=== PATIENT | female | born 2000 | race Caucasian/White ===

== ENCOUNTER → 2022-10-16 | Outpatient (CLI) | payer BC, SELFPAY ==
[2022-10-18 22:06] LABS: Chlamydia By Nucleic Acid AMP Negative (Negative)
[2022-10-18 22:58] LABS: Gonococcus By Nucleic Acid AMP Negative (Negative)
[2022-10-23 19:10] LABS: HPV Reflexed? NOT INDICATED
== END | disposition home or self-care (01) ==
LOC: LABSPEC 13:06
PROVIDERS: Referring Provider Obstetrics & Gynecology; Visit Provider Obstetrics & Gynecology
DX: Z12.4 Encounter for screening for malignant neoplasm of cervix (principal); Z11.3 Encounter for screening for infections with a predominantly sexual mode of transmission
CPT/HCPCS: 87491; 87591; 88175; G0145

== ENCOUNTER → 2024-04-03 | Outpatient (CLI) | payer BC, SELFPAY ==
[2024-04-07 03:06] LABS: Chlamydia By Nucleic Acid AMP Negative (Negative); Gonococcus By Nucleic Acid AMP Negative (Negative)
== END | disposition home or self-care (01) ==
LOC: LABSPEC 12:40
PROVIDERS: Referring Provider Nurse Practitioner Family; Visit Provider Nurse Practitioner Family
DX: N89.8 Other specified noninflammatory disorders of vagina (principal); Z20.2 Contact with and (suspected) exposure to infections with a predominantly sexual mode of transmission
CPT/HCPCS: 87070; 87205; 87491; 87591

== ENCOUNTER → 2024-05-16 | Outpatient (CLI) | payer BC, SELFPAY | END | disposition home or self-care (01) | LOC: LABSPEC 15:42 | PROVIDERS: Referring Provider Advanced Practice Midwife; Visit Provider Advanced Practice Midwife | DX: N89.8 Other specified noninflammatory disorders of vagina (principal) | CPT/HCPCS: 87070; 87205 ==

== ENCOUNTER → 2024-08-29 | Outpatient (CLI) | payer BC, SELFPAY ==
[2024-08-29 16:26] LABS: T3 Total - Triiodothyronine 1.12 ng/mL (0.6-1.81)
== END | disposition home or self-care (01) ==
LOC: MTRAD 13:19 → MTLAB 13:21
PROVIDERS: Referring Provider Ophthalmology; Visit Provider Ophthalmology
DX: H02.403 Unspecified ptosis of bilateral eyelids (principal)
CPT/HCPCS: 36415; 84238; 84436; 84480

== ENCOUNTER → 2024-12-22 | Outpatient (CLI) | payer BC, SELFPAY | END | disposition home or self-care (01) | LOC: LABSPEC 16:33 | PROVIDERS: Referring Provider Nurse Practitioner Women's Health; Visit Provider Nurse Practitioner Women's Health | DX: N89.8 Other specified noninflammatory disorders of vagina (principal) | CPT/HCPCS: 87070; 87205; 87491; 87591 ==

== ENCOUNTER → 2025-01-16 | Outpatient (CLI) | payer BC, SELFPAY ==
[2025-01-16 15:10] LABS: Hematocrit 40.1 % (37-47); Hemoglobin 13.6 g/dL (12.0-15.0); Mean Corp Hgb Conc 33.9 g/dL (32-36); Mean Corpuscular Hgb 32.1 pg (27.0-32.0); Mean Corpuscular Volume 94.6 fL (81-99); Mean Platelet Vol. 10.4 fl (6.2-12.0); Platelet Count 220 K/mm3 (150-450); RBC Distribution Width CV 11.9 % (11.6-14.6); RBC Distribution Width SD 41.3 fl (35.1-43.9); Red Blood Count 4.24 M/mm3 (4.2-5.4); White Blood Count 6.7 K/mm3 (4.4-11.0)
[2025-01-16 16:30] LABS: ALB/GLOB Ratio 1.7 RATIO (0.9-2.4); AST(SGOT) 16 U/L (<=31); Alanine Aminotransfer ALT/SGPT 13 U/L (<=34); Albumin, Serum 4.3 g/dL (3.5-5.0); Alkaline Phosphatase 45 U/L (35-104); Anion Gap 9 (5-15); BUN 14 mg/dL (4-19); BUN/Creat Ratio 20.5 RATIO (10-20); Calcium,Total 9.3 mg/dL (7.6-11.0); Chloride 103 mmol/L (98-108); Creatinine, Serum 0.69 mg/dL (0.70-1.20); EST Glomerular Filtration Rate 124 (>60); Globulin 2.6 g/dL (2.2-4.2); Glucose 91 mg/dL (70-99); Magnesium 2.2 mg/dL (1.5-2.2); Potassium 4.3 mmol/L (3.3-5.1); Protein, Total 6.8 g/dL (5.9-8.4); Sodium Level 136 mmol/L (133-145); Total Bilirubin 0.47 mg/dL (0.00-1.30)
== END | disposition home or self-care (01) ==
LOC: MTLAB 11:32
PROVIDERS: Referring Provider Psychiatry & Neurology Neurology; Visit Provider Psychiatry & Neurology Neurology
DX: G70.00 Myasthenia gravis without (acute) exacerbation (principal)
CPT/HCPCS: 36415; 80053; 83735; 85027

== ENCOUNTER → 2025-02-18 | Outpatient (CLI) | payer BC, SELFPAY ==
--- NOTE | 2025-02-18 13:15 | MRI_ITS ---
PROCEDURE: CHEST W/WO CONTRAST, 02/18/2025 REASON FOR EXAM: CHECK FOR THYMOMA; PT HAS MYASTHENIA GRAVIS TECHNIQUE: Multisequence multiplanar MR of the chest was performed with and without IV contrast. IV contrast: 15 mL Clariscan COMPARISON: None FINDINGS: Variable overall moderate/severe motion limitation. Some sequences are severely motion degraded and essentially nondiagnostic in some areas most significantly the mid to inferior chest. In/out of phase imaging not performed, notably hawthorne sequences in the evaluation of the thymus. Diffusion was not performed. note also that the entire chest was not imaged. Heart/pericardium: Grossly unremarkable, limited due to motion. Aorta: Grossly unremarkable, limited due to motion. Pulmonary arteries: Not well evaluated. Lymph nodes: Subcarinal node suspected to measure 12 mm short axis but evaluation is very limited due to motion. Nonspecific slightly midline T2 bright anterior mediastinal soft tissue, difficult to discretely measured due to motion 2.2 x 1.1 cm, roughly 2.2 cm inferiorly and 1.6 x 1.2 cm superiorly. No clear enhancement although assessment is limited due to motion. Lungs/pleura: Not well evaluated, no gross abnormality identified. Airways: Not well evaluated Chest wall: Grossly unremarkable as imaged. Upper abdomen: Very poorly evaluated. Musculoskeletal: Grossly unremarkable. MRI/Chest W/WO Contrast IMPRESSION: 1. Considerably limited exam, partially due to motion artifact. Note also that in/out of phase sequences were not performed, notably hawthorne sequences in the evaluation of the thymus and necessary for the dif ferentiation of normal thymic tissue/thymic hyperplasia from anterior mediastinal neoplasia. 2. Nonspecific nodular anterior mediastinal soft tissue spanning roughly 2.2 cm does not appear clearly cystic or off-midline, difficult to measure due to motion, unable to further characterize in light of the above. Anterior mediastinal neoplasia versus hyperplastic or normal thymic tissue for patient age remain within the differen tial. Consider repeat dedicated thymic protocol MRI including in/out of phase imaging and diffusion sequences, ideally at an aging center accustomed to performing this relatively rare imaging protocol, versus CT with contrast if this is not possib le, to better delineate morphology. 3. Questionable mild mediastinal lymphadenopathy, difficult to confirm given se krystal motion in the region. This is nonspecific and may be reactive in the absence of known malignancy. Correlate with medical history and follow-up as indicated. 4. Additional description as above. Reading Location: [id number]
== END | disposition home or self-care (01) ==
LOC: OPMRI 13:13
PROVIDERS: Referring Provider Psychiatry & Neurology Neurology; Visit Provider Psychiatry & Neurology Neurology
DX: G70.00 Myasthenia gravis without (acute) exacerbation (principal)
CPT/HCPCS: 71552; A9575

== ENCOUNTER → 2025-06-16 | Outpatient (CLI) | payer BC, SELFPAY | END | disposition home or self-care (01) | PROVIDERS: Visit Provider Obstetrics & Gynecology | DX: Z12.4 Encounter for screening for malignant neoplasm of cervix (principal); E01.0 Iodine-deficiency related diffuse (endemic) goiter | CPT/HCPCS: 36415; 84439; 84443; 86376; 88175; G0145 ==

== ENCOUNTER → 2025-06-24 | Outpatient (CLI) | payer BC, SELFPAY ==
--- NOTE | 2025-06-24 13:37 | CT_ITS ---
PROCEDURE: CHEST WITH CONTRAST 06/24/2025 REASON FOR EXAM: EVAL FOR THYMOMA; EVAL MEDIASTINAL LYMPHADENOPATHY TECHNIQUE: Procedure Code: CTCHW Modality: CT Procedure: CHEST WITH CONTRAST Coronal and Sagittal reconstruction series were provided. CONTRAST: VOLUME: mL One or more dose reduction techniques were used (e.g., Automated exposure control, adjustment of the mA and/or kV according to patient size, use of iterative reconstruction technique). COMPARISON: Report from a previous chest MRI dated 02/18/2025. FINDINGS: The lungs are clear. The heart and great vessels appear unremarkable. A small amount of residual thymus tissue is noted within the anterior superior mediastinum. No thoracic lymphadenopathy. The visualized upper abdominal contents appear unremarkable. No acute fracture. No acute osseous abnormality. CT/Chest WITH Contrast IMPRESSION: Small amount of residual thymus tissue. Otherwise unremarkable CT of the chest. Reading Location: [id number]
== END | disposition home or self-care (01) ==
LOC: CT 13:35
PROVIDERS: Referring Provider Psychiatry & Neurology Neurology; Visit Provider Psychiatry & Neurology Neurology
DX: G70.00 Myasthenia gravis without (acute) exacerbation (principal)
CPT/HCPCS: 71260; Q9967

== ENCOUNTER → 2025-06-26 | Outpatient (CLI) | payer BC, SELFPAY ==
--- NOTE | 2025-06-26 13:02 | US_ITS ---
PROCEDURE: THYROID 06/26/2025 REASON FOR EXAM: THYROMEGALY TECHNIQUE: Procedure Code: USTHY Modality: US Procedure: THYROID COMPARISON: None available. FINDINGS: Transcutaneous 2-D grayscale and color Doppler ultrasound of the thyroid gland was performed. MEASUREMENTS: Right lobe: 5.5 x 1.9 x 1.6 cm. Left lobe: 5.5 x 2 x 1.5 cm. Isthmus: 3 mm. RIGHT SIDE: Homogeneous echotexture. The inferior right thyroid contains a mixed cystic and solid, isoechoic, wider than tall, smooth nodule measuring 0.7 x 0.6 x 0.5 cm without evidence of echogenic foci. (TR 2) LEFT SIDE: Homogeneous echotexture. The interpolar left thyroid contains a mixed cystic and solid, isoechoic, wider than tall, smooth nodule measuring 0.6 x 0.5 x 0.4 cm without evidence of echogenic foci. (TR 2) ISTHMUS: The isthmus contains a solid, isoechoic, wider than tall, smooth nodule measuring 2.7 x 0.9 x 0.4 cm without evidence of echogenic foci. (TR 3) Normal vascularity without microcalcification. Multiple, prominent but not pathologic (based on short axis criteria) lymph nodes within the visualized neck. Inferior to right thyroid 1.4 x 1.2 x 0.4 cm. Inferior to left thyroid 1.3 x 0.9 x 0.6 cm. Superior to isthmus 1.1 x 0.5 x 0.3 cm. US/Thyroid IMPRESSION: Multinodular thyroid. TI-RADS 3, MILDLY SUSPICIOUS. RECOMMENDATIONS: Recommend image guided fine needle aspiration of the isthmus nodule. ACR TI-RADS Guidelines TI RADS 1 - Benign; No FNA TI RADS 2- Not Suspicious; No FNA TI RADS 3- Mildly Suspicious; FNA if >2.5cm or Follow if >1.5cm at 1, 3 and 5 y ears. TI RADS 4- Moderately Suspicious; FNA if >1.5cm or Follow if >1cm at 1, 2, 3 an d 5 years. TI RADS 5- Highly Suspicious; FNA if >1cm or Follow if >0.5cm yearly for up to 5 years. Reference: Jana FN, Ainsley WD, Keshav EG et al. ACR Thyroid Imaging, Repor ting and Data System (TI-RADS): White Paper of the ACR TI-RADS Committee. J Am Reading Location: [facility]
== END | disposition home or self-care (01) ==
LOC: US 12:59
PROVIDERS: Referring Provider Obstetrics & Gynecology; Visit Provider Obstetrics & Gynecology
DX: E01.0 Iodine-deficiency related diffuse (endemic) goiter (principal)
CPT/HCPCS: 76536

== ENCOUNTER → 2025-07-21 | Outpatient (CLI) | payer BC, SELFPAY ==
--- NOTE | 2025-07-21 14:00 | CYSPIN_PTH ---
PATIENT: DENIS PAYTON LOC: [facility] U#:[id number] AGE/SX: 24/F ROOM: RE07/21/[address]: Dr. Sebastien Bose MD : [id number] BED: DIS: 07/21/2025 SPEC #: [id number] RECD: 07/21/25 15:42 STATUS: LOLI REQ #: [id number] RAGHU: 07/21/25 14:[address]: Sebastien Bose DEPT: CYTOLOGY RECD BY: Amanda Wynn ENTERED: 07/22/25 10:15 SP TYPE: CYSPIN FL IZABEL DR: No Primary Care Phys Tissues: Thyroid isthmus Procedures: Pap Stain (control) Special Stain Group II Diff Quik Stain (control) Cytospin Fluid Cytology Other HEADER OPERATION: Fine needle aspiration of isthmic nodule PRE-OP DIAGNOSIS: Isthmic nodule TISSUE SUBMITTED: A- Isthmic nodule DIAGNOSIS CYTOLOGY A. Thyroid, isthmus, nodule', FNA (cytospin, smear x4): - Atypical cells of undetermined significance (TBS III). - Afirma testing will be submitted and a separate report will follow. CYTOLOGY STUDY Slides are reviewed. CYTOLOGY GROSS A. Received is 30 ml of light pink-cloudy cytolyt with particles and 4 smears labeled with the patient's name and and designated per the requisition as Isthmic nodule. Submitted for cytology and cytospin. Mr 07/22/2025 CPT: 99440
== END | disposition home or self-care (01) ==
PROVIDERS: Referring Provider Surgery; Visit Provider Surgery
DX: E04.1 Nontoxic single thyroid nodule (principal)
CPT/HCPCS: 88108; 88161; 88313